=== PATIENT | male | born 1975 | race Caucasian/White ===

== ENCOUNTER 2017-12-17 13:40 | Emergency (ER) | payer MEDICAID ==
--- NOTE | 2017-12-17 13:43 | EDPHY ---
H & P Time Seen by Provider: 12/17/17 13:42 HPI/ROS: CHIEF COMPLAINT: Chest pain HISTORY OF PRESENT ILLNESS: The patient presents to the ED with a several month history of intermittent chest pain. The patient reports that his symptoms are nonexertional and not pleuritic. The patient has no risk factors for coronary artery disease. He reports a mild case of bronchitis 1 month ago. The patient denies any asymmetric calf pain or swelling. He denies any prolonged travel. He denies significant past medical history. REVIEW OF SYSTEMS: A comprehensive 10 point review of systems is otherwise negative aside from elements mentioned in the history of present illness. Source: Patient Exam Limitations: No limitations - Medical/Surgical History PMH: Past medical history: Noncontributory Past surgical history: Back surgery, finger surgery Family medical history: No coronary artery disease in siblings or first-degree relatives - Social History Smoking Status: Never smoked - Physical Exam Exam: General Appearance: Alert, no distress Eyes: Pupils equal and round no pallor or injection ENT, Mouth: Mucous membranes moist Respiratory: There are no retractions, lungs are clear to auscultation Cardiovascular: Regular rate and rhythm Gastrointestinal: Abdomen is soft and nontender, no masses, bowel sounds normal Neurological: 5/5 strength all 4 extremities Skin: Warm and dry, no rashes Musculoskeletal: Neck is supple nontender Extremities: symmetrical, full range of motion Constitutional: Initial Vital Signs Temperature (C) 36.5 C 12/17/17 13:44 Heart Rate 68 12/17/17 13:44 Respiratory Rate 16 12/17/17 13:44 Blood Pressure 123/75 H 12/17/17 13:44 O2 Sat (%) 95 12/17/17 13:44 O2 Delivery Mode Room Air Allergies/Adverse Reactions: No Known Allergies Allergy (Unverified 12/17/17 13:43) Home Medications: Medication Instructions Recorded NK [No Known Home Meds] 12/17/17 Medical Decision Making - Diagnostics EKG Interpretation: EKG: Complete interpretation has been separately recorded in the [facility] archive. Summary impression: Sinus rhythm, rate 61 Imaging Results: Imaging Impressions Chest X-Ray 12/17/17 13:50 Impression: Patchy atelectasis or infiltrate, left lower lobe.. ED Course/Re-evaluation: The patient presents to the ED with several months of atypical nonexertional chest pain. The patient's EKG demonstrates no evidence of ischemia. The patient's troponin is normal. His chest x-ray demonstrates no evidence of acute disease, only atelectasis and his vital signs are noted to be stable. The patient is felt to be low risk for coronary artery disease. I think it would be prudent to have him try NSAIDs for the next week. He should follow up with Cardiology for any ongoing symptoms that are mild. He has been given customary return precautions. Differential Diagnosis: Differential diagnosis considered includes esophageal spasm, pericarditis, myocardial infarction, costochrondritis - Data Points Laboratory Results: Laboratory Results 12/17/17 14:11 12/17/17 14:11 12/17/17 12/17/17 14:11 14:11 WBC 4.74 10^3/uL 10^3/uL (3.80-9.50) RBC 5.87 10^6/uL 10^6/uL (4.40-6.38) Hgb 17.9 g/dL H g/dL (13.7-17.5) Hct 51.7 % H % (40.0-51.0) MCV 88.1 fL fL (81.5-99.8) MCH 30.5 pg pg (27.9-34.1) MCHC 34.6 g/dL g/dL (32.4-36.7) RDW 13.4 % % (11.5-15.2) Plt Count 239 10^3/uL 10^3/uL (150-400) MPV 10.3 fL fL (8.7-11.7) Neut % (Auto) 55.7 % % (39.3-74.2) Lymph % (Auto) 33.3 % % (15.0-45.0) [place] % (Auto) 6.8 % % (4.5-13.0) Eos % (Auto) 3.2 % % (0.6-7.6) Baso % (Auto) 0.8 % % (0.3-1.7) Nucleat RBC Rel Count 0.0 % % (0.0-0.2) Absolute Neuts (auto) 2.64 10^3/uL 10^3/uL (1.70-6.50) Absolute Lymphs (auto) 1.58 10^3/uL 10^3/uL (1.00-3.00) Absolute Monos (auto) 0.32 10^3/uL 10^3/uL (0.30-0.80) Absolute Eos (auto) 0.15 10^3/uL 10^3/uL (0.03-0.40) Absolute Basos (auto) 0.04 10^3/uL 10^3/uL (0.02-0.10) Absolute Nucleated RBC 0.00 10^3/uL 10^3/uL (0-0.01) Immature Gran % 0.2 % % (0.0-1.1) Immature Gran # 0.01 10^3/uL 10^3/uL (0.00-0.10) Sodium 141 mEq/L mEq/L (135-145) Potassium 4.4 mEq/L mEq/L (3.3-5.0) Chloride 103 mEq/L mEq/L (97-110) Carbon Dioxide 25 mEq/l mEq/l (22-31) Anion Gap 13 mEq/L mEq/L (8-16) BUN 18 mg/dL mg/dL (7-23) Creatinine 1.1 mg/dL mg/dL (0.7-1.3) Estimated GFR > 60 Glucose 84 mg/dL mg/dL (70-100) Calcium 9.7 mg/dL mg/dL (8.5-10.4) Troponin I < 0.012 ng/mL ng/mL (0.000-0.034) Departure - Departure Disposition: Home, Routine, Self-Care Clinical Impression: Chest wall pain Condition: Good Instructions: Chest Pain (ED) Additional Instructions: 1. Take Ibuprofen or Motrin 600 mg by mouth three times a day. 2. Return to the emergency department for markedly worsening chest pain, difficulty breathing or other concerns. 3. I do recommend following up with the digital media associate you have been referred to for any ongoing mild symptoms. Referrals: Sadi Bennett MD [Medical Doctor] - As per Instructions
[2017-12-17 14:02] VITALS: BP 142/92
--- NOTE | 2017-12-17 14:06 | CPEKG ---
Heart Rate: 61 RR Interval: 984 P-R Interval: 180 QRSD Interval: 92 QT Interval: 384 QTC Interval: 387 P [place]: 67 QRS [place]: 70 T Wave [place]: 17 EKG Severity - NORMAL ECG - EKG Impression: SINUS RHYTHM Electronically Signed By: Frank Lang 19-Dec-2017 08:52:55
[2017-12-17 14:21] LABS: PLATELET COUNT 239 10^3/uL (150-400)
== END 2017-12-17 15:28 | disposition home or self-care (01) ==
DX: R07.89 Other chest pain (principal)